=== PATIENT | female | born 1985 ===

== ENCOUNTER 2017-10-05 17:57 | Observation (INO) | payer OTHER ==
[2017-10-05 19:24] LABS: ABSOLUTE BASOPHIL COUNT 0 /CUMM (0.0-0.2); ABSOLUTE EOSINOPHIL COUNT 0.1 /CUMM (0.0-0.7); ABSOLUTE GRANULOCYTE CT 6.9 /CUMM (1.4-6.5); ABSOLUTE LYMPH COUNT 2.2 /CUMM (1.2-3.4); ABSOLUTE MONOCYTE COUNT 0.5 /CUMM (0.10-0.60); BASOPHIL % 0.2 % (0.0-2.0); EOSINOPHIL % 0.6 % (0-5); GRANULOCYTE % 71.3 % (42.2-75.2); MEAN CORPUSCULAR HGB 29.3 PG (27.0-31.0); MEAN CORPUSCULAR HGB CONC 34.4 G/DL (33.0-37.0); MEAN CORPUSCULAR VOLUME 85.2 FL (81.0-99.0); MEAN PLATELET VOLUME 13.3 FL (7.4-10.4); PLATELET COUNT 138 /CUMM (130-400); RED BLOOD CELL CT 3.99 /CUMM (4.20-5.40); WHITE BLOOD CELL COUNT 9.6 /CUMM (4.8-10.8)
[2017-10-07] MEDS ORDERED: PRENATABS RX T1 EACH PO (09:01)
[2017-10-07] MEDS ORDERED: METHYLDOPA250 MG PO (10:27)
== END 2017-10-06 09:06 ==
LOC: CBCO 17:57 → GNO 21:00
PROVIDERS: Obstetrics & Gynecology
DX: O47.1 False labor at or after 37 completed weeks of gestation (principal); Z3A.40 40 weeks gestation of pregnancy
CPT/HCPCS: 36415; 59025; 87389; 96360; 96361; G0378

== ENCOUNTER 2017-10-07 08:28 | Inpatient (IN) | payer SELFPAY ==
[~2017-10-07] VITALS: Ht 172.7 cm; Wt 92.5 kg
[2017-10-07 08:59] VITALS: BP 112/62
[2017-10-07] MEDS ORDERED: PRENATABS RX T1 EACH PO (09:01)
[2017-10-07 10:00] LABS: ABSOLUTE BASOPHIL COUNT 0 /CUMM (0.0-0.2); ABSOLUTE EOSINOPHIL COUNT 0 /CUMM (0.0-0.7); ABSOLUTE GRANULOCYTE CT 6.6 /CUMM (1.4-6.5); ABSOLUTE LYMPH COUNT 1.7 /CUMM (1.2-3.4); ABSOLUTE MONOCYTE COUNT 0.5 /CUMM (0.10-0.60); BASOPHIL % 0.2 % (0.0-2.0); EOSINOPHIL % 0.5 % (0-5); GRANULOCYTE % 74.3 % (42.2-75.2); HEMATOCRIT 34.3 % (37-47); MEAN CORPUSCULAR HGB 28.7 PG (27.0-31.0); MEAN CORPUSCULAR HGB CONC 33.4 G/DL (33.0-37.0); MEAN CORPUSCULAR VOLUME 85.9 FL (81.0-99.0); MEAN PLATELET VOLUME 13.4 FL (7.4-10.4); PLATELET COUNT 123 /CUMM (130-400); RBC DISTRIBUTION WIDTH 15.9 % (11.5-14.5); RED BLOOD CELL CT 3.99 /CUMM (4.20-5.40); WHITE BLOOD CELL COUNT 8.8 /CUMM (4.8-10.8)
--- NOTE | 2017-10-07 10:21 | History & Physical ---
General Information and HPI MD Statement: I have seen and personally examined MAGO WILDER and documented this H&P. The patient is a 32 year old female at 40 weeks and 5 days gestation who presented with a chief complaint of DECREASED MOVEMENT.. 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 EENTM: Denies: blurred vision, double vision, visual changes. Cardiovascular: Denies: chest pain, orthopena. Respiratory: Denies: cough, short of breath. GI: Denies: diarrhea, nausea, vomiting. Neurological/Psychological: Denies: anxiety, depressed. Exam & Diagnostic Data Last 24 Hrs of Vital Signs/I&O vss Vital Signs Date Time Temp Pulse Resp B/P B/P Pulse O2 O2 Flow FiO2 Mean Ox Delivery Rate 10/07 0859 112/62 Intake & Output 10/07 1600 10/07 0800 10/07 0000 Intake Total Output Total Balance Patient 204 lb Weight Obstetric Exam Wgt Gained During : 38# Pelvimetry: seems adequate Dilation (cm): 1 Effacement (%): 30 Station: -3 Membranes: intact Fluid: unknown Fundal Height (cm): 38 Multiple Gestation? No Contractions: irregular #1 - FHR Baseline: 135 Category: 1 Estimated Weight: 3800g Presentation: vtx Patient for Induction? Yes Lindsey Score Lindsey Score Response Value Cervix Position: posterior 0 Cervix Consistency: medium 1 Cervix Effacement: 0-30% 0 Cervix Dilation: 1-2 cm 1 Cervix Station: -3 0 Total 2 Physical Exam General Appearance Alert, Oriented X3, Cooperative, No Acute Distress Skin No Rashes HEENT Atraumatic Neck Supple Cardiovascular Regular Rate Lungs Clear to Auscultation Abdomen Normal Bowel Sounds, Soft, No Tenderness Neurological Normal Gait, Normal Speech, Strength at 5/5 X4 Ext Extremities No Clubbing, No Cyanosis Labs Blood Type & Rh: B pos Antibody Screen: neg Hct/Hgb & Platelets #1: 37.7/12.7/216 Hct/Hgb & Platelets #2: 40/11.7/144 Rubella: not immune VDRL #1: nr VDRL #2: drawn HbsAg: neg HIV #1: nr HIV #2 drawn 1 Hr PG: not done Group B Strep: positive Initial Ultrasound: not available Anatomy Ultrasound: not available Ultrasound for EFW: 09/26/2017 66%tile c/w 39 weeks Genetic Testing: not done Last 24 Hrs of Labs/Michael: Laboratory Tests 10/07/17 0947: Creatinine Pending, Uric Acid Pending, AST Pending, ALT Pending, Lactate Dehydrogenase Pending 10/07/17 0926: CBC w Diff NO MAN DIFF REQ, RBC 3.99 L, MCV 85.9, MCH 28.7, MCHC 33.4, RDW 15.9 H, MPV 13.4 H, Gran % 74.3, Lymphocytes % 19.0 L, Monocytes % 6.0, Eosinophils % 0.5, Basophils % 0.2, Absolute Granulocytes 6.6 H, Absolute Lymphocytes 1.7, Absolute Monocytes 0.5, Absolute Eosinophils 0, Absolute Basophils 0, Urine Color YEL, Urine Clarity HAZY H, Urine pH 6.0, Ur Specific [place] 1.020, Urine Protein TRACE H, Urine Ketones TRACE H, Urine Nitrite NEG , Urine Bilirubin NEG, Urine Urobilinogen 1.0, Ur Leukocyte Esterase MOD H, Ur Microscopic SEDIMENT EXAMINED, Urine RBC RARE, Urine WBC 3-5 H, Ur Epithelial Cells MANY H, Urine Bacteria MANY H, Urine Hemoglobin NEG, Urine Glucose NEG 10/07/17 0837: CBC w Diff Cancelled, WBC Cancelled, RBC Cancelled, Hgb Cancelled, Hct Cancelled , MCV Cancelled, MCH Cancelled, MCHC Cancelled, RDW Cancelled, Plt Count Cancelled, MPV Cancelled Assessment/Plan Assessment/Plan: IUP at term decreased movement GBS positive will start pen when in labor incomplete PNC on aldomet ? dont know what criterior was used Bp is now normal will do PIH labs but pt is asymptomatic. non inducable cervix will do [place] mechanical ripening for now with 30 cc NS in balloon As Ranked By This Provider Problem List: 1. Core Measures Venous Thromboembolism VTE Risk Factors / No Mechanical VTE Prophylaxis d/t LowRisk-No Interven Req'd No VTE Pharm Prophylaxis d/t LowRisk-No Interven Req'd Attending MD Review Statement Attending Statement Attending MD Statement: examined this patient, discussed with family, discussed w/nursing
[2017-10-07] MEDS ORDERED: METHYLDOPA250 MG PO (10:27)
--- NOTE | 2017-10-08 07:12 | Labor & Delivery Summary ---
Delivery Summary Vaginal Delivery: Vaginal: vertex Episiotomy/Lacerations: Episiotomy/Lacerations: second degree Type: midline Repair: 3-0 polysorb Anesthesia: nesicaine Placenta: Placenta: spontanteous, normal, 3 vessel, nuchal cord (x_) Anesthesia: block Apgars - 1 Min: 9 Apgars - 5 Min: 9 Additional Comments: thick meconium peds in attendance
[2017-10-09 09:20] LABS: ABSOLUTE BASOPHIL COUNT 0.1 /CUMM (0.0-0.2); ABSOLUTE GRANULOCYTE CT 9.7 /CUMM (1.4-6.5); ABSOLUTE LYMPH COUNT 2.3 /CUMM (1.2-3.4); ABSOLUTE MONOCYTE COUNT 0.8 /CUMM (0.10-0.60); BASOPHIL % 0.4 % (0.0-2.0)
--- NOTE | 2017-10-09 09:35 | PN- Post Delivery/GYN ---
Subjective Subjective: doing well, no complaints. tolerate diet, void without difficulties, ambulating well Review of Systems Constitutional: Reports: no symptoms. EENTM: Reports: no symptoms. Cardiovascular: Reports: no symptoms. Respiratory: Reports: no symptoms. Genitourinary: Reports: see HPI. Musculoskeletal: Reports: no symptoms. All Other Systems: Reviewed and Negative Objective Last 24 Hrs of Vital Signs/I&O VSS Physical Exam: CV RRR Lungs CTA B/L Abdomen: soft, nontender, uterus firm, fundus below umbilicus, lochia mild Ext: DCT (-) Current Medications: Current Medications Sig/Edwardo Start time Last Medication Dose Route Stop Time Status Admin Acetaminophen 650 MG Q4P PRN 10/08 07 AC 10/08 PO 1616 Docusate Sodium 100 MG DAILY NEEDED PRN 10/08 2345 AC PO Hydroxyzine HCl 50 MG AT BEDTIME NEED.. 10/08 714 AC PO Ibuprofen 800 MG Q6P PRN 10/08 0715 AC 10/08 PO 1409 Magnesium Hydroxide 30 ML DAILY NEEDED PRN 10/08 07 AC PO Methylergonovine 200 MCG TID 10/08 0900 DC 10/08 Maleate PO 10/08 2101 2132 Oxycodone/ 1 TAB Q3P PRN 10/08 07 AC 10/08 Acetaminophen PO 0809 Oxytocin 20 UNITS ONCE ONE 10/08 0945 DC 10/08 Lactated Ringer's 1,000 ML IV 10/08 1744 0955 Oxytocin 20 UNITS Q5H 10/08 0715 DC 10/08 Lactated Ringer's 1,000 ML IV 10/08 1214 0700 Senna 374 MG AT BEDTIME NEED.. 10/08 07 AC PO Tetanus/Reduced 0.5 ML ONCE ONE 10/08 1130 DC 10/08 Diphtheria/Acell IM 10/08 1131 1133 Pertussis Last 24 Hrs of Labs/Michael: Laboratory Tests 10/09/17 0640: CBC w Diff Pending, WBC Pending, RBC Pending, Hgb Pending, Hct Pending, MCV Pending, MCH Pending, MCHC Pending, RDW Pending, Plt Count Pending, MPV Pending Assessment/Plan Assessment/Plan 32yo, s/p NSVRD, PPD #1 1. encourage ambulation and breast feeding 2.RT PP care Problem List: 1. Attending MD Review Statement Attending Statement Attending MD Statement: examined this patient, discussed with family, discussed with nursing
[2017-10-09 09:49] LABS: ABSOLUTE EOSINOPHIL COUNT 0 /CUMM (0.0-0.7); EOSINOPHIL % 0.4 % (0-5); MEAN CORPUSCULAR HGB 28.5 PG (27.0-31.0); MEAN CORPUSCULAR HGB CONC 32.7 G/DL (33.0-37.0); MEAN CORPUSCULAR VOLUME 87.2 FL (81.0-99.0); MEAN PLATELET VOLUME 13.7 FL (7.4-10.4); RBC DISTRIBUTION WIDTH 16.4 % (11.5-14.5); WHITE BLOOD CELL COUNT 12.9 /CUMM (4.8-10.8)
[2017-10-09 10:28] LABS: PLATELET COUNT 126 /CUMM (130-400)
[2017-10-10] MEDS ORDERED: FERROUS SULFAT325 M2 PO (08:47)
[2017-10-10] MEDS ORDERED: IBUPROFEN800 M1 PO (08:50)
[2017-10-10] MEDS ORDERED: TYLENOL325 M1 PO (08:53)
[2017-10-10] MEDS ORDERED: DOCUSATE SODIU100 M3 PO (08:55)
--- NOTE | 2017-10-10 09:06 | PN- OBGYN ---
Surgical Brief Attending Note Brief Attending Note: PPD 2 Patient left the hospital earlier today with my permission before I made later rounds. Per unit RN she was doing very well. Lochia was mild, perineal pain controlled with Motrin, and nursing starting to go very well. She was ambulating, voiding, and eating without difficulty. She was ready to go home. afebrile VS normal per RN note - Fundus - firm, NT, below U Perineum - intact, dry Extr - benign H/H 8.8/27% (from 11.4/34%) A: , s/p after spontaneous labor acute blood loss on chronic anemia P: Home today PNV and iron tablet daily F/U at 6-week check with
== END 2017-10-10 11:40 | DRG 775 ==
LOC: GNO 08:28
PROVIDERS: Obstetrics & Gynecology
PROC: 0KQM0ZZ Repair Perineum Muscle, Open Approach (ICD-10-PCS; principal; 2017-10-08)
PROC: 10E0XZZ Delivery of Products of Conception, External Approach (ICD-10-PCS; principal; 2017-10-08)
DX: O70.1 Second degree perineal laceration during delivery (principal); Z37.0 Single live birth; O69.81X0 Labor and delivery complicated by cord around neck, without compression, not applicable or unspecified; Z3A.40 40 weeks gestation of pregnancy; O99.824 Streptococcus B carrier state complicating childbirth
CPT/HCPCS: GNOP; GNOS; 36415; 81001; 82570; 87086; J7120